=== PATIENT | male | born 1955 | race Hispanic/Latino ===

== ENCOUNTER 2019-03-17 14:40 | Outpatient (CLI) | payer MEDICARE ==
--- NOTE | 2019-03-17 17:42 | MRI ---
MRI RIGHT SHOULDER WITHOUT CONTRAST: INDICATIONS: Right shoulder pain with loss of range of motion. COMPARISON: None. FINDINGS: Motion artifact heavily limits image detail. There is moderate AC joint osteoarthrosis. The rotator cuff is intact. There is mild supraspinatus tendinosis. There is moderate tendinosis involving the intraarticular biceps tendon. There is a type 4 SLAP tear with tear extension into the biceps ancho r complex, best seen on image 11 of series 6. There is a suspected paralabral cyst seen along the po sterior-superior aspect of the glenoid, measuring approximately 6 mm. No muscular atrophy is grossly evident. IMPRESSION: 1. Type 4 superior labrum anterior and posterior tear with tear extension into the biceps anchor com plex. 2. Moderate tendinosis of the intraarticular biceps tendon. 3. Moderate acromioclavicular joint osteoarthrosis. 4. No full-thickness rotator cuff tear demonstrated. There is mild supraspinatus and infraspinatus tendinosis. POS: [facility]
== END 2019-03-17 14:41 | disposition home or self-care (01) ==
LOC: SCSMRI 14:40
PROVIDERS: ATTEND Orthopaedic Surgery
DX: M25.511 Pain in right shoulder (principal); S43.431A Superior glenoid labrum lesion of right shoulder, initial encounter; M19.011 Primary osteoarthritis, right shoulder; M75.21 Bicipital tendinitis, right shoulder

== ENCOUNTER 2023-01-16 08:35 | Outpatient (CLI) | payer MEDICARE, MEDICAID | END 2023-01-16 08:36 | disposition home or self-care (01) | LOC: BICRAD 08:35 | PROVIDERS: ATTEND Nurse Practitioner Family | DX: M25.512 Pain in left shoulder (principal); M19.012 Primary osteoarthritis, left shoulder ==

== ENCOUNTER 2024-08-25 08:12 | Outpatient (CLI) | payer MEDICARE, MEDICAID | END 2024-08-25 08:13 | disposition home or self-care (01) | LOC: BICULT 08:12 | PROVIDERS: ATTEND Nurse Practitioner Family | DX: Z13.6 Encounter for screening for cardiovascular disorders (principal); Z87.891 Personal history of nicotine dependence; I25.10 Atherosclerotic heart disease of native coronary artery without angina pectoris | CPT/HCPCS: 76775 ==